=== PATIENT | male | born 1985 | race Caucasian/White ===

== ENCOUNTER 2017-04-20 08:59 | Emergency (ER) | payer SELFPAY ==
[~2017-04-20] VITALS: Ht 170.2 cm; Wt 66.0 kg
[~2017-04-20 08:59] MED LIST: PROC25R PR; ZOFR4TAB3 SL
[2017-04-20 09:03] VITALS: BP 113/80; PULSE 74; RESP 16; TEMP 97.8; O2SAT 98
--- NOTE | 2017-04-20 09:28 | PD ---
HPI Chief Complaint: Musculoskeletal Complaint Time Seen by Provider: 09:06 Travel History International Travel<30 days: No Contact w/Intl Traveler<30days: No Traveled to known affect area: No History of Present Illness HPI This 31-year-old male is complaining of right-sided chest pain. He works in [email or web address]. About 2 weeks ago he was moving a heavy log. The weight of the load shifted and hit him in the right anterior chest. He's been having some discomfort since then but has noted some swelling. He had increasing pain the last few days. He has continued to work since the injury. Pain is aggravated by certain movements and by deep breathing. He has been taking 600 mg of Motrin without relief of the pain PFSH Past Medical History Asthma: No Anxiety: Yes (ALSO ANGER KELI. ) COPD: No Diabetes: No Diminished Hearing: No Musculoskeletal: Yes (FX TO RIGHT ELBOW) Psychiatric: Yes Respiratory: Yes (ENVIROMENTAL ALLERGY) Social History Alcohol Use: Yes Tobacco Use: Yes Substance Use: Yes ("WEED") Allergies-Medications (Allergen,Severity, Reaction): Coded Allergies: Cultivated Oat Pollen (Verified Allergy, Severe, 04/20/17) Reported Meds & Prescriptions Reported Meds & Active Scripts Active No Active Prescriptions or Reported Medications Review of Systems General / Constitutional: No: Fever, Chills Eyes: No: Diploplia, Blurred Vision HENT: No: Headaches, Vertigo Cardiovascular: Positive: Chest Pain or Discomfort, No: Palpitations Respiratory: No: Cough, Shortness of Breath Gastrointestinal: No: Vomiting, Diarrhea Genitourinary: No: Urgency, Frequency Musculoskeletal: No: Myalgias, Arthralgias Skin: No Rash, No Itching Neurologic: No: Dizziness, Syncope Endocrine: No: Heat Intolerance, Cold Intolerance Hematologic/Lymphatic: No: Easy Bruising Physical Exam Narrative GENERAL: Well-developed male SKIN: Focused skin assessment warm/dry. HEAD: Atraumatic. Normocephalic. EYES: Pupils equal and round. No scleral icterus. No injection or drainage. ENT: No nasal bleeding or discharge. Mucous membranes pink and moist. NECK: Trachea midline. No JVD. CARDIOVASCULAR: Regular rate and rhythm. No murmur appreciated. RESPIRATORY: No accessory muscle use. Clear to auscultation. Breath sounds equal bilaterally. There is tenderness of the chest wall just below the clavicle and just lateral to the sternum GASTROINTESTINAL: Abdomen soft, non-tender, nondistended. Hepatic and splenic margins not palpable. MUSCULOSKELETAL: No obvious deformities. No clubbing. No cyanosis. No edema. NEUROLOGICAL: Awake and alert. No obvious cranial nerve deficits. Motor grossly within normal limits. Normal speech. PSYCHIATRIC: Appropriate mood and affect; insight and judgment normal. Data Data Last Documented VS Vital Signs Date Time Temp Pulse Resp B/P Pulse Ox O2 Delivery O2 Flow Rate FiO2 04/20/17 09:03 97.8 74 16 113/80 98 Orders Chest, Pa & Lat (04/20/17 09:14) Acetamin-Hydrocod 325-5 Mg ([place] 5-325 (04/20/17 10:00) MDM Medical Decision Making Medical Screen Exam Complete: Yes Emergency Medical Condition: Yes Medical Record Reviewed: Yes Differential Diagnosis Differential includes chest wall contusion, rib fracture, pneumothorax Narrative Course Chest x-ray is negative. The site of the pain is most consistent with a injury to the costochondral cartilage. Patient is not getting relief with anti- inflammatories I will prescribe some Lortab that I cautioned him that he needs to cut back on his activity for this to heal Diagnosis Primary Impression: Chest wall contusion Qualified Code: S20.211A - Chest wall contusion, right, initial encounter Scripts Hydrocodone-Acetaminophen (Lortab)7.5-325 Mg Tab1 Tab PO Q4H PRN (PAIN) #20 TAB Ref 0 Prov:Sukhdev Kaba MD 04/20/17 Disposition: 01 DISCHARGE HOME Condition: Stable Sukhdev Kaba MD April 20, 2017 09:28
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
[2017-04-20] MEDS ORDERED: HYDR-3534 PO (09:53)
[2017-04-20] MEDS ORDERED: ACETAMINOPHEN/HYDROcodone 325 MG/5 MG TAB PO ONE (10:00)
== END 2017-04-20 10:26 | disposition home or self-care (01) ==
LOC: PHEFT 08:59
DX: S20.211A Contusion of right front wall of thorax, initial encounter (principal); F41.9 Anxiety disorder, unspecified; Z72.0 Tobacco use; X50.9XXA Other and unspecified overexertion or strenuous movements or postures, initial encounter
CPT/HCPCS: 71020; 99283

== ENCOUNTER 2017-05-28 09:29 | Emergency (ER) | payer SELFPAY ==
[~2017-05-28] VITALS: Ht 170.2 cm; Wt 65.0 kg
[~2017-05-28 09:29] MED LIST changes: +HYDR-3534 PO; -PROC25R PR; -ZOFR4TAB3 SL
[2017-05-28 09:32] VITALS: BP 117/86; PULSE 75; RESP 16; TEMP 98.2; O2SAT 99
[2017-05-28] MEDS ORDERED: LIDOCAINE 1%/EPINEPHrine 1:100,000 SOLN 30 ML VIAL ONE (09:40)
[2017-05-28] MEDS ORDERED: LIDOCAINE 2%/EPINEPHrine 1:100,000 30ML MDV INFIL ONE (09:45)
--- NOTE | 2017-05-28 09:48 | PD ---
HPI Chief Complaint: Laceration/Skin Injury Time Seen by Provider: 09:37 Travel History International Travel<30 days: No Contact w/Intl Traveler<30days: No Traveled to known affect area: No History of Present Illness HPI Patient arrives with a laceration in the region of the left high parietal scalp. He stood up he accidentally scraped his head against a light fixture. The injury occurred about 30 minutes ago. He's had minimal pain and bleeding since. He does not recall last tetanus shot. No loss of consciousness. PFSH Past Medical History Asthma: No Anxiety: Yes (ALSO ANGER KELI. ) COPD: No Diabetes: No Diminished Hearing: No Musculoskeletal: Yes (FX TO RIGHT ELBOW) Psychiatric: Yes Respiratory: Yes (ENVIROMENTAL ALLERGY) Social History Alcohol Use: Yes (SOCIALLY) Tobacco Use: No Substance Use: No (FORMER) Allergies-Medications (Allergen,Severity, Reaction): Coded Allergies: Cultivated Oat Pollen (Verified Allergy, Severe, 05/28/17) Reported Meds & Prescriptions Reported Meds & Active Scripts Active No Active Prescriptions or Reported Medications Review of Systems Neurologic: No: Weakness, Dizziness, Syncope, Focal Abnormalities, Coordination Problem, Paresthesia Physical Exam Narrative GENERAL: Well-nourished well-developed 31-year-old male SKIN: Warm and dry. HEAD: Normocephalic. 4 cm laceration left high parietal scalp, approximately 3 mm wide EYES: No scleral icterus. No injection or drainage. NECK: Supple, trachea midline. No JVD or lymphadenopathy. Data Data Last Documented VS Vital Signs Date Time Temp Pulse Resp B/P Pulse Ox O2 Delivery O2 Flow Rate FiO2 05/28/17 09:32 98.2 75 16 117/86 99 Vital signs reviewed Orders Lidocai-Epi 2%-1:100,000 Inj (Xylocaine- (05/28/17 09:45) Lidocai-Epi 1%-1:100,000 Inj (Xylocaine- (05/28/17 09:40) Lidocai-Epi 1%-1:100,000 Inj (Xylocaine- (05/28/17 10:00) Tetanus/Diphtheria Tox Adult (Tetanus/Di (05/28/17 10:00) MDM Medical Decision Making Medical Screen Exam Complete: Yes Emergency Medical Condition: Yes Medical Record Reviewed: Yes Differential Diagnosis Laceration, abrasion, hematoma, skull fracture Narrative Course Laceration repaired. Tetanus given. Procedures Procedure Narrative LACERATION LOCATION: Left parietal scalp LENGTH: 4 NUMBER OF STITCHES/THIERNO: 5 REPAIR: The area of the laceration was prepped with Betadine and sterilely draped. The laceration was infiltrated with 1% lidocaine with epi. The wound was copiously irrigated and explored without evidence of foreign body, tendon injury or neurovascular injury. The wound was closed using thierno. This was a single layer repair. A sterile dressing was applied. The patient was advised to keep the dressing clean and dry. Patient tolerated the procedure well. Diagnosis Primary Impression: Scalp laceration Qualified Code: S01.01XA - Scalp laceration, initial encounter Referrals: RETURN TO ER IN 10 DAYS FOR STAPLE REMOVAL Additional Instructions: You have a choice when it comes to health care, and we are glad that you chose [facility]. Hopefully, we have met your expectations on today's visit. You are welcome to return to [facility] at any time, as we are committed to meeting the health care needs of our community. RETURN TO ER IN 10 DAYS FOR STAPLE REMOVAL. Scripts No Active Prescriptions or Reported Meds Disposition: 01 DISCHARGE HOME Condition: Pete Galloway MD May 28, 2017 09:48
[2017-05-28] MEDS ORDERED: TETANUS/DIPHTHERIA TOXOID ADULT 0.5 ML VIAL IM ONE (10:00)
[2017-05-28] MEDS ORDERED: LIDOCAINE 1%/EPINEPHrine 1:100,000 SOLN 20 ML VIAL INFIL ONE (10:00)
== END 2017-05-28 10:06 | disposition home or self-care (01) ==
LOC: PHEFT 09:29
DX: S01.01XA Laceration without foreign body of scalp, initial encounter (principal); Z23 Encounter for immunization; Z86.59 Personal history of other mental and behavioral disorders; Z87.39 Personal history of other diseases of the musculoskeletal system and connective tissue; Z87.09 Personal history of other diseases of the respiratory system; W22.09XA Striking against other stationary object, initial encounter
CPT/HCPCS: 12002; 90471; 90714

== ENCOUNTER 2017-06-10 17:23 | Emergency (ER) | payer SELFPAY ==
[~2017-06-10] VITALS: Ht 170.2 cm; Wt 64.5 kg
[2017-06-10 17:24] VITALS: BP 107/67; PULSE 70; RESP 15; TEMP 98.1; O2SAT 98
--- NOTE | 2017-06-10 17:34 | PD ---
HPI Chief Complaint: Wound/Suture/Staple Re-Check Time Seen by Provider: 17:34 Travel History International Travel<30 days: No Contact w/Intl Traveler<30days: No Traveled to known affect area: No History of Present Illness HPI Patient 31-year-old male presents emergency department for removal of thierno. Had thierno placed 13 days ago after impacting his head on an overhead light fixture. Reports no pain reports no bleeding. Has no headache or neurologic symptoms. PFSH Past Medical History Asthma: No Anxiety: Yes (ALSO ANGER KELI. ) COPD: No Diabetes: No Diminished Hearing: No Musculoskeletal: Yes (FX TO RIGHT ELBOW) Psychiatric: Yes Respiratory: Yes (ENVIROMENTAL ALLERGY) ?: Not Social History Alcohol Use: Yes (SOCIALLY) Tobacco Use: No Substance Use: No (FORMER) Allergies-Medications (Allergen,Severity, Reaction): Coded Allergies: Cultivated Oat Pollen (Verified Allergy, Severe, 06/10/17) Reported Meds & Prescriptions Reported Meds & Active Scripts Active No Active Prescriptions or Reported Medications Review of Systems Except as stated in HPI: all other systems reviewed are Neg Physical Exam Narrative GENERAL: Well-nourished, well-developed patient. SKIN: Left-sided frontal scalp wound healing well, [address] No surrounding erythema. Wound is clean dry and intact. Amenable for staple removal. HEAD: Normocephalic. EYES: No scleral icterus. No injection or drainage. NECK: Supple, trachea midline. No JVD or lymphadenopathy. CARDIOVASCULAR: Regular rate and rhythm without murmurs, gallops, or rubs. RESPIRATORY: Breath sounds equal bilaterally. No accessory muscle use. GASTROINTESTINAL: Abdomen soft, non-tender, nondistended. MUSCULOSKELETAL: No cyanosis, or edema. BACK: Nontender without obvious deformity. No CVA tenderness. Data Data Last Documented VS Vital Signs Date Time Temp Pulse Resp B/P Pulse Ox O2 Delivery O2 Flow Rate FiO2 06/10/17 17:24 98.1 70 15 107/67 98 MDM Medical Decision Making Medical Screen Exam Complete: Yes Emergency Medical Condition: Yes Differential Diagnosis Wound removal, laceration, cellulitis excluded clinically. Narrative Course 5 [place] removed, discussed ongoing wound care stable for discharge. Diagnosis Primary Impression: Encounter for staple removal Additional Instructions: Be cautious with the wound, it may still open for another 2 months. Shampoo and shower and swimming are ok. Return to ED if wound opens. Scripts No Active Prescriptions or Reported Meds Disposition: 01 DISCHARGE HOME Condition: Stable Bowen Caban MD Jun 10, 2017 17:34
== END 2017-06-10 17:51 | disposition home or self-care (01) ==
LOC: PHEFT 17:23
DX: S01.00XD Unspecified open wound of scalp, subsequent encounter (principal); W22.8XXD Striking against or struck by other objects, subsequent encounter; Z48.02 Encounter for removal of sutures
CPT/HCPCS: 99281

== ENCOUNTER 2017-08-09 15:18 | Emergency (ER) | payer SELFPAY ==
[~2017-08-09] VITALS: Ht 170.2 cm; Wt 70.0 kg
[2017-08-09 15:21] VITALS: BP 123/74; PULSE 72; RESP 20; TEMP 97.2; O2SAT 98
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
== END 2017-08-09 16:37 | disposition left against medical advice (07) ==
LOC: NETRI 15:18
DX: S69.91XA Unspecified injury of right wrist, hand and finger(s), initial encounter (principal); X58.XXXA Exposure to other specified factors, initial encounter
CPT/HCPCS: 99281